=== PATIENT | male | born 2000 | race Asian ===

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

== ENCOUNTER 2021-11-12 18:25 | Emergency (ER) | payer MEDICAID, OTHER ==
[~2021-11-12] VITALS: Ht 162.6 cm; Wt 86.8 kg
[~2021-11-12 18:25] MED LIST: GUAIF600 PO
[2021-11-12 18:28] VITALS: BP 143/67
== END 2021-11-12 20:14 | disposition home or self-care (01) ==
LOC: EMS 18:48
DX: S61.211A Laceration without foreign body of left index finger without damage to nail, initial encounter (principal); W45.8XXA Other foreign body or object entering through skin, initial encounter; Y93.89 Activity, other specified; Y92.89 Other specified places as the place of occurrence of the external cause; Y99.0 Civilian activity done for income or pay
CPT/HCPCS: 99282; Z7502